=== PATIENT | female | born 2000 | race Caucasian/White ===

== ENCOUNTER 2021-02-04 19:32 | Emergency (ER) | payer OTHER ==
[2021-02-04 19:50] VITALS: BP 113/72; PULSE 71; TEMP 98.8; BMI 24.9
[2021-02-04] MEDS ORDERED: ACETAMINOPHEN 500 MG TABLET (FP) PO ONE (22:15)
[2021-02-04] MEDS ORDERED: ACETAMINOPHEN 500 MG TABLET (FP) ONE (22:36)
[2021-02-04] MEDS ORDERED: SODIUM CHLORIDE 0.9% 500 ML INFUS.BAG IV ONE (22:54)
== END 2021-02-05 | disposition left against medical advice (07) ==
LOC: JERFT 19:32 → JER 19:32 → JERFT 02-05
DX: B34.9 Viral infection, unspecified (principal)
CPT/HCPCS: 87804; 99284-25; C9803; U0003; U0005